=== PATIENT | male | born 2000 | race Two or more races ===

== ENCOUNTER 2021-08-04 18:13 | Emergency (ER) | payer SELFPAY ==
[~2021-08-04] VITALS: Ht 172.7 cm; Wt 102.2 kg
--- NOTE | 2021-08-04 18:26 | PHYS DOC ---
Past Medical History Past Medical History: No Pertinent History (SHERON LEONARD DO) Past Surgical History: No Surgical History (SHERON LEONARD DO) Smoking Status: Never Smoker Alcohol Use: Occasionally Drug Use: None (SHERON LEONARD DO) General Adult EDM: Chief Complaint: ALLERGIC REACTION HPI: HPI: Patient is a 21 year old male who presents with allergic reaction with angioedema from eating peanuts and shrimp at 1630. He has a known allergy to peanut butter. He states that he is ate peanuts before in the past but this did not happen. Patient's lips are swollen and itchy but denies throat swelling, shortness of breath, wheezing, dizziness, chest pain. He took no medications prior to arrival. (HU FARR APRN) Review of Systems: Review of Systems: Constitutional: Denies fever or chills. [] Eyes: Denies change in visual acuity. [] HENT: Denies nasal congestion or sore throat. + Swollen lips [] Respiratory: Denies cough or shortness of breath. [] Cardiovascular: Denies chest pain or edema. [] GI: Denies abdominal pain, nausea, vomiting, bloody stools or diarrhea. [] : Denies dysuria. [] Musculoskeletal: Denies back pain or joint pain. [] Integument: Denies rash. + Itching mouth [] Neurologic: Denies headache, focal weakness or sensory changes. [] Endocrine: Denies polyuria or polydipsia. [] Lymphatic: Denies swollen glands. [] Psychiatric: Denies depression or anxiety. [] (HU FARR APRN) Heart Score: C/O Chest Pain: No (HU FARR APRN) Current Medications: Current Medications Medications (Trade) Dose Ordered Sig/Mack Start Time Stop Time Status Last Admin Dose Admin Diphenhydramine HCl (Benadryl) 50 mg 1X ONCE 08/04/21 18:30 08/04/21 18:31 UNV Famotidine (Pepcid Vial) 20 mg 1X ONCE 08/04/21 18:30 08/04/21 18:31 UNV Methylprednisolone Sodium Succinate (SOLU-Medrol 125MG VIAL) 125 mg 1X ONCE 08/04/21 18:30 3 18:31 UNV Sodium Chloride 1,000 ml @ 1,000 mls/hr 1X ONCE 08/04/21 18:30 08/04/21 19:29 UNV (HU FARR APRN) Allergies: Allergies: Allergies Coded Allergies Type Severity Reaction Last Updated Verified No Known Drug Allergies 08/04/21 No (HU FARR APRN) Physical Exam: PE: Constitutional: Well developed, well nourished, no acute distress, non-toxic appearance. [] HENT: Normocephalic, atraumatic, bilateral external ears normal, oropharynx moist, no oral exudates, nose normal. Lips swollen 2-3+. The top lip is bigger than the lower lip. [] Eyes: PERRLA, EOMI, conjunctiva normal, no discharge. [] Neck: Normal range of motion, no tenderness, supple, no stridor. [] Cardiovascular:Heart rate regular rhythm, no murmur [] Lungs & Thorax: Bilateral breath sounds clear to auscultation [] Abdomen: Bowel sounds normal, soft, no tenderness, no masses, no pulsatile masses. [] Skin: Warm, dry, no erythema, no rash. [] Back: No tenderness, no CVA tenderness. [] Extremities: No tenderness, no cyanosis, no clubbing, ROM intact, no edema. [] Neurologic: Alert and oriented X 3, normal motor function, normal sensory f unction, no focal deficits noted. [] Psychologic: Affect normal, judgement normal, mood normal. [] (HU FARR APRN) EKG: EKG: [] (HU FARR APRN) Radiology/Procedures: Radiology/Procedures: [] (HU FARR APRN) Course & Med Decision Making: Course & Med Decision Making Pertinent Labs and Imaging studies reviewed. (See chart for details) See HPI. Alert and oriented x4. Ambulatory with a steady gait. Speaks in full clear sentences. Lungs are clear to all stational lobes. Uvula midline and nonswollen. Tongue is not swollen. Throat does not appear edematous. Vital signs within normal limits. No respiratory distress. No rash or hives. Patient's top lip and bottom lip are swollen with the top lip being about 3+ in the bottom lip being 2+. Saline lock started with IV normal saline, 50 mg IV Benadryl, 125 mg Solu- Medrol, 20 mg Pepcid. Patient was also given Zofran as the Benadryl made him nauseous. Patient's lips have become less swollen. Patient states he is feeling better. Patient will be sent home with Zyrtec, prednisone and Pepcid. [] (HU FARR APRN) Dragon Disclaimer: Dragon Disclaimer: This electronic medical record was generated, in whole or in part, using a voice recognition dictation system. (HU FARR APRN) Departure Departure Impression: Primary Impression: Allergic reaction Qualified Codes: T78.40XA - Allergy, unspecified, initial encounter Disposition: HOME / SELF CARE / HOMELESS Condition: STABLE Patient Instructions: Food Allergy Additional Instructions: Drink plenty of fluids. Take your medication as it is prescribed. Stay away from anything that has to do with nuts. Follow-up with primary care doctor if needed. If you begin having more swelling or cannot breathe call 911. If you have to use the EpiPen you must call 911. Scripts Epinephrine (EPIPEN 2-DMITRIY) 0.3 Mg/0.3 Ml Auto.injct 1 SYR IM ONCE PRN for ANAPHYLAXIS for 1 Day, #1 PACKET 0 Refills Call 911 if using Prov: HU FARR APRN 08/04/21 Famotidine (PEPCID) 20 Mg Tablet 20 MG PO BID, #10 TAB Prov: HU FARR APRN 08/04/21 Prednisone (PREDNISONE) 50 Mg Tablet 1 TAB PO DAILY, #5 TAB Prov: HU FARR APRN 08/04/21 Cetirizine Hcl (ZYRTEC) 10 Mg Tablet 1 TAB PO DAILY for 14 Days, #14 TAB 2 Refills Prov: HU FARR APRN 08/04/21 Attending Signature Attending Signature I have reviewed the PA/DIVERSIONAL THERAPIST'S ASSISTANT's note and plan of care. I was available for consultation as needed during the patient's visit in the emergency department. I agree with the clinical impression, plan, and disposition. (SHERON LEONARD DO) HU FARR APRN Aug 04, 2021 18:26 SHERON LEONARD DO Aug 05, 2021 03:26
[2021-08-04] MEDS ORDERED: methylPREDNISolone SOD SUCC PF 125 MG/2 ML VIAL. IV ONE (18:30)
[2021-08-04] MEDS ORDERED: IV NORMAL SALINE 1000ML BAG 1,000 ML IV ONE (18:30)
[2021-08-04] MEDS ORDERED: diphenhydrAMINE 50 MG/ML VIAL IVP ONE (18:30)
[2021-08-04] MEDS ORDERED: ONDANSETRON PF 4 MG/2 ML VIAL. IVP ONE (18:30)
[2021-08-04] MEDS ORDERED: FAMOTIDINE 20 MG/2 ML VIAL IVP ONE (18:30)
[2021-08-04 20:19] VITALS: BP 129/73
[2021-08-04] MEDS ORDERED: CETI10TA74 PO (20:24)
[2021-08-04] MEDS ORDERED: PRED50TA PO (20:24)
[2021-08-04] MEDS ORDERED: EPIPEN 2-P0.3 MG/0.3 IM (20:24)
[2021-08-04] MEDS ORDERED: FAMO-63 PO (20:24)
== END 2021-08-04 20:45 | disposition home or self-care (01) ==
LOC: ER 18:13
DX: T78.40XA Allergy, unspecified, initial encounter (principal)
CPT/HCPCS: 96361; 96374; 96375; 99285; J1200; J2405; J2930; J3490; J7030